=== PATIENT | female | born 1995 | race Caucasian/White ===

== ENCOUNTER 2021-12-09 09:28 | Emergency (ER) | payer BC ==
[~2021-12-09] VITALS: Ht 157.5 cm; Wt 114.0 kg
[2021-12-09 09:40] VITALS: BP 140/75
--- NOTE | 2021-12-09 10:04 | PHYS DOC ---
Past History Additional Past Medical Histor: PCOS, "Prediabetic" (LILLY BARRIGA APRN) Past Surgical History: No Surgical History (LILLY BARRIGA APRN) Alcohol Use: Rarely (LILLY BARRIGA APRN) General Adult EDM: Chief Complaint: LOWER EXT PAIN HPI: HPI: Patient is a 26-year-old female who presents to the emergency department following a fall complaining of left ankle and right knee pain. Patient reports that just prior to arrival she fell down 6 stairs. Patient rates her pain 6 out of 10. No treatment prior to arrival. Patient reports that the pain in her ri ght knee is worse with extension. She has been able to bear weight and ambulate. She denies hitting her head or loss of consciousness, wounds, decreased sensation in extremity. (LILLY BARRIGA APRN) Review of Systems: Review of Systems: HENT: see HPI Musculoskeletal: see HPI Integument: see HPI Neurologic: see HPI (LILLY BARRIGA APRN) Allergies: Allergies: Allergies Coded Allergies Type Severity Reaction Last Updated Verified No Known Drug Allergies 12/09/21 No (LILLY BARRIGA APRN) Physical Exam: PE: Constitutional: Well developed, well nourished, no acute distress, non-toxic appearance. [] HENT: Normocephalic, atraumatic, bilateral external ears normal, oropharynx moist, no oral exudates, nose normal. [] Eyes: PERRL, EOMI, conjunctiva normal, no discharge. [] Neck: Normal range of motion, no tenderness, supple, no stridor. [] Cardiovascular: Normal peripheral perfusion Lungs & Thorax: Normal work of breathing, no tachypnea Abdomen: Obese soft Skin: Warm, dry, no erythema, no rash. [] Back: Normal range of motion Extremities: No tenderness, no cyanosis, no clubbing, ROM intact, no edema. Right knee: No swelling, no obvious deformity, no wounds, range of motion intact, neuro intact, no joint laxity, pain with full extension of knee. Left ankle: No swelling, no obvious deformity, no wounds, range of motion intact, neuro intact, no crepitus Neurologic: Alert and oriented X 3, normal motor function, normal sensory function, no focal deficits noted. [] Psychologic: Affect normal, judgement normal, mood normal. [] (LILLY BARRIGA APRN) Current Patient Data: Vital Signs: Vital Signs Date Time Temp Pulse Resp B/P (MAP) Pulse Ox O2 Delivery O2 Flow Rate FiO2 12/09/21 09:40 97.8 62 16 140/75 (96) 100 Room Air (LILLY BARRIGA APRN) EKG: EKG: [] (LILLY BARRIGA APRN) Radiology/Procedures: Radiology/Procedures: [] (LILLY BARRIGA APRN) Heart Score: C/O Chest Pain: N/A Risk Factors: Risk Factors: DM, Current or recent (<one month) smoker, HTN, HLP, family history of CAD, obesity. Risk Scores: Score 0 - 3: 2.5% MACE over next 6 weeks - Discharge Home Score 4 - 6: 20.3% MACE over next 6 weeks - Admit for Clinical Observation Score 7 - 10: 72.7% MACE over next 6 weeks - Early Invasive Strategies (LILLY BARRIGA APRN) Course & Med Decision Making: Course & Med Decision Making Pertinent Labs and Imaging studies reviewed. (See chart for details) Patient presents to the emergency department for left ankle and right knee pain after falling down stairs. She denies hitting her head or loss of consciousness. Imaging was performed of her left ankle and right knee that were negative for any acute findings as read by this [employer] and supervising physician. Patient on RICE protocol. Patient advised to take Tylenol and/or ibuprofen for her pain at home. I discussed with patient all findings and diagnostic testing as well as the need to follow-up with PCP for further evaluation and treatment or return to the ER if any new or worsening symptoms. Strict return precautions were also discussed at length. Patient voiced understanding and agreement with the plan. Patient is hemodynamically stable at the time of disposition. (LILLY BARRIGA APRN) Dragon Disclaimer: Dragon Disclaimer: This electronic medical record was generated, in whole or in part, using a voice recognition dictation system. (LILLY BARRIGA APRN) Attending Co-Sign The patient was seen and interviewed as well as examined at the bedside. The chart was reviewed. The case was discussed. Agree with the plan of care. (HOLLY MAXWELL DO) Departure Departure: Impression: Primary Impression: Ankle sprain Qualified Codes: S93.402A - Sprain of unspecified ligament of left ankle, initial encounter Additional Impression: Knee sprain Qualified Codes: S83.91XA - Sprain of unspecified site of right knee, initial encounter Disposition: HOME / SELF CARE / HOMELESS Condition: GOOD Referrals: PCP,NO (PCP) Patient Instructions: JONATHAN - Routine Care for Injuries Additional Instructions: You were seen in the emergency department for right knee and left ankle pain after falling downstairs. Imaging was performed that showed no acute findings. Your symptoms may be improved by something called the rice protocol. This is rest, ice, compression, elevation. Please follow-up when doing intense exercises that may make the pain worse. Sometimes gentle stretching can provide relief, but be careful to injury. It is important to perform gentle range of motion exercises to prevent stiff joints and chronic pain. Use ice packs over the affected areas to help decrease your pain. For the first 24 hours you can apply ice 20 minutes on 20 minutes off for 4 times per day. Sometimes compression such as the use of an Carlyle wrap can help with the swelling. You may also elevate the affected area to help with the swelling. You can take Tylenol and/or ibuprofen for your pain at home. Follow-up with your primary care provider within a week. Return to the emergency department if you develop worsening of your pain, increased swelling, inability to ambulate, decreased sensation in your extremity or decreased range of motion. LILLY BARRIGA APRN Dec 09, 2021 10:04 HOLLY MAXWELL DO Dec 10, 2021 06:11
--- NOTE | 2021-12-09 11:36 | RAD ---
Study: XR KNEE 3 VIEWS_RT Indication: Fall. Pain. Comparison: None. Findings: Alignment is anatomic. No acute fracture. Chronic focus of mineralization projecting lateral to the p atellar tendon. Maintained femorotibial compartment joint space height. No joint effusion. Impression: No acute osseous abnormality. Electronically signed by: MARY WALKER MD (12/09/2021 11:33 AM) [id number]
--- NOTE | 2021-12-09 11:39 | RAD ---
Study: XR EXAM OF ANKLE_LEFT 3V Indication: Fall. Pain. Comparison: None. Findings: No acute fracture. Symmetric ankle mortise. Unremarkable talar dome. Small Achilles insertion entheso phyte. Impression: No acute fracture. Considering the absence of weightbearing alignment is anatomic. Electronically signed by: MARY WALKER MD (12/09/2021 11:36 AM) [id number]
== END 2021-12-09 12:07 | disposition home or self-care (01) ==
LOC: ER 09:28
DX: S83.91XA Sprain of unspecified site of right knee, initial encounter (principal); S93.402A Sprain of unspecified ligament of left ankle, initial encounter; W10.8XXA Fall (on) (from) other stairs and steps, initial encounter; Y93.89 Activity, other specified; Y92.89 Other specified places as the place of occurrence of the external cause; Y99.8 Other external cause status
CPT/HCPCS: 73562; 73610; 99284